=== PATIENT | female | born 1935 | race Caucasian/White ===

== ENCOUNTER 2017-06-13 14:17 | Inpatient (IN) | payer MEDICARE, BC ==
--- NOTE | 2017-06-13 14:46 | ERNOTE ---
Date of Service: 06/13/17 Time Seen by Provider: 06/13/17 14:29 Stated Complaint: SHORTNESS OF BREATH Presenting Symptoms:: cough, sore throat, runny nose, fever Source: patient Exam Limitations: no limitations Immunizations: IMMUNIZATION HX Immunizations Up to Date Yes History of Influenza Vaccine Yes Hx Pneumococcal Vaccination Yes Allergies/Adverse Reactions: Allergies No Known Allergies Allergy (Verified 05/13/16 10:40) Home Medications: HOME MEDICATIONS Amiodarone HCl [Cordarone] 100 mg PO DAILY 04/05/16 [Last Taken 04/05/16] Aspirin 325 mg PO DAILY 04/05/16 [Last Taken 04/05/16] Pravastatin Sodium 40 mg PO DAILY 04/05/16 [Last Taken 04/04/16] Acetaminophen [Tylenol] 1,000 mg PO TID PRN 05/12/16 [Last Taken Unknown] Blood-Glucose Meter [Blood Glucose Monitoring] 1 each MC DAILY 05/12/16 [Last Taken Unknown] Carvedilol [Coreg] 12.5 mg PO BID 05/12/16 [Last Taken Unknown] Cholecalciferol [Vitamin D] 1,000 unit PO DAILY 05/12/16 [Last Taken Unknown] HYDROcodone/ACETAMINOPHEN [Lortab 5-325 mg Tablet] 1 each PO Q12H PRN 05/12/16 [ Last Taken Unknown] Levothyroxine Sodium [Synthroid] 125 mcg PO DAILY 05/12/16 [Last Taken Unknown] Sennosides [Senokot] 17.2 mg PO DAILY PRN 05/12/16 [Last Taken Unknown] metFORMIN HCL [Glucophage] 250 mg PO BIDWM 05/12/16 [Last Taken Unknown] oxyCODONE HCL/ACETAMINOPHEN [Percocet 5 MG/325 MG] 1 tab PO TID PRN 05/12/16 [ Last Taken Unknown] - History of Present Ilness Narrative: Pt. comes in with c/o SOB, cough, malaise, and fatigue for two days. Pt. denies any fever, CP, NVD, but does state that she has had chills and has not wanted to eat anything for a couple of days. Timing: getting worse Severity: moderate Frequency/Possible Cause: Reports: occasional episodes, unknown cause Modifying Factors - Improves: Reports: nothing Modifying Factors - Worsens: Reports: nothing Associated Symptoms: Reports: cough, shortness of breath, nasal congestion, nasal drainage, earache, sore throat, muscle aches, fever/chills Review of Systems - Review of Systems Constitutional: Present: chills, fatigue, malaise. Absent: fever, weakness EYE: Present: no symptoms reported ENT: Present: ear pain, nose congestion, nasal drainage, sore throat Respiratory: Present: shortness of breath, cough. Absent: wheezing Cardiology: Present: no symptoms reported. Absent: chest pain, palpitations, edema Gastrointestinal/Abdominal: Present: no symptoms reported. Absent: nausea, vomiting, diarrhea, abdominal pain Genitourinary: Present: no symptoms reported. Absent: frequency, decreased urinary output Musculoskeletal: Present: no symptoms reported. Absent: back pain, joint pain Skin: Present: no symptoms reported Neurological: Present: no symptoms reported. Absent: headache, dizziness/light- headedness, numbness, tingling All Other Systems: All systems neg except as marked - Patient's Past Medical History Patient History - Medical: Anxiety, Arthritis, Diabetes Type 2, Depression, Hypothyroidism Patient History - Cardiac/Respiratory: Hypertension, Hyperlipidemia, Myocardial Infarction Patient History - Cancer: No Hx of Cancer Patient History - Surgical Procedures: Cholecystectomy, Pacemaker Patient History - Other: None LMP (females 10-50): Menopausal - Family History Father Family History - Medical: Family History - Cardiac/Respiratory: COPD Mother Family History - Medical: Family History - Cardiac/Respiratory: History Unknown, COPD - Social History Living Situations: home Abuse History: No History of abuse Psych History: Hx of Anxiety, Hx of Depression Smoking Status: Never smoker Have you smoked in the past 12 months: No Do you dip or chew tobacco: No Alcohol Use: none Drug Use: none - Immunizations Immunizations Up to Date: Yes Hx Pneumococcal Vaccination: Yes History of Influenza Vaccine: Yes Physical Exam - Physical Exam General Appearance: Present: wd/wn, alert, no apparent distress Head Exam: Present: normal inspection, no evidence of injury Eye Exam: Normal inspection: bilateral Ears, Nose, Throat: Present: nasal congestion, pharyngeal erythema. Absent: pharyngeal swelling, tonsillar exudate, tonsillar swelling Neck: Present: nontender, supple, full range of motion, lymphadenopathy (L) - submandibular Respiratory: Present: no respiratory distress, no accessory muscle use, chest nontender, crackles - bibasilar Cardiovascular/Chest: Present: regular rate, rhythm, no murmur, normal peripheral pulses Gastrointestinal/Abdominal: Present: normal bowel sounds, nontender, nondistended, soft Back Exam: Present: normal inspection Extremity Exam: Present: normal inspection, non-tender, normal range of motion, no edema Neurological Exam: Present: alert, oriented, normal mood/affect, no motor/ sensory deficits, acid purifier II-XII nml as tested, normal cerebellar test Skin Exam: Present: normal color, warm/dry. Absent: pallor, skin rash ED Progress - Date and Time Seen: Date and Time: 06/13/17 15:45 Discussed with Olinda and as pt. is not hypoxic and is not terribly ill feel that she is likely safe to go home 06/13/17 15:[address] Martines and as pt. is elderly and has a hx of stents then she would prefer pt. to be admitted to obs overnight. 06/13/17 15:55 Discussed with pt. and she is in agreement with the POC to admit her to the hospital. - Results and Orders Patient's Lab Results:: I have reviewed the patient's lab results. Results and Orders: Abnormal Lab Results 06/13/17 06/13/17 Range/Units 14:28 14:46 RBC 4.10 L (4.2-5.4) M/mm3 MPV 10.3 H (6.0-9.5) fl Neutrophils % 76.0 H (42-75.0) % Lymphocytes % 13.4 L (20-51) % Lymphocytes # 0.7 L (1.5-3.5) k/mm3 Random Glucose 151 H (70-110) mg/dL ALT 18 L (19-67) U/L B-Natriuretic Peptide 2225 H (5-550) pg/mL - Vital Signs Patient's Vital Signs:: I have reviewed the patient's vital signs. Vital Signs: Vital Signs 06/13/17 14:19 Temperature 36.7 C Pulse Rate 88 Respiratory 18 Rate Blood Pressure 156/89 O2 Sat by Pulse 95 Oximetry - EKG EKG: other - SR with nonspecific changes in lateral leads, no acute ST abnormality. EKG read: Interp. by me - Progress/Reassessment Chief Complaint: Upper Respiratory Symptoms Progress:: Unchanged Departure Clinical Impression: CAD (coronary artery disease), [place] coronary artery Qualifiers: [place] vs. transplanted heart: [place] heart Associated angina: without angina Qualified Code(s): I25.10 - Atherosclerotic heart disease of [place] coronary artery without angina pectoris CHF (congestive heart failure) Qualifiers: Congestive heart failure type: unspecified congestive heart failure type Congestive heart failure chronicity: acute on chronic Qualified Code(s): I50.9 - Heart failure, unspecified - Departure Disposition: [facility] Condition: Fair
[2017-06-13 14:55] LABS: Hematocrit 37.8 % (37.0-47.0); Hemoglobin 12.6 gm/dL (12.5-16.0); Mean Cell Volume 92.2 fl (78-100); Mean Corpuscular Hemoglobin 30.7 pg (27-31); Mean Corpuscular Hgb Conc 33.3 g/dl (32-36); Mean Platelet Volume 10.3 fl (6.0-9.5); Neutrophil # 4.2 K/mm3 (1.3-6.0); Platelet Count 180 K/mm3 (150-450); Red Cell Distribution Width 13.1 % (11.5-14.0); White Blood Count 5.5 K/mm3 (4.0-10.5)
[2017-06-13 15:19] LABS: ALT 18 U/L (19-67); AST 19 U/L (0-48); Albumin * 3.4 gm/dl (3.4-5.0); Alkaline Phosphatase * 74 U/L (50-170); Anion Gap 10.7 mmol/L (6.8-13.8); BNP * 2225 pg/mL (5-550); BUN/Creatinine Ratio 12.9 (9.0-21.6); Bilirubin, Total 0.8 mg/dL (0.0-1.1); Blood Urea Nitrogen 11 mg/dL (3-23); Ca. Corrected For Albumin 9.2 mg/dL (8.4-10.2); Carbon Dioxide 31.5 mmol/L (24-32.6); Chloride 100 mmol/L (97-106); Glucose * 151 mg/dL (70-110); Potassium 4.2 mmol/L (3.4-4.6); Sodium 138 mmol/L (132-142); Total Protein 7.6 gm/dL (6.2-8.2); Troponin I Less than 0.017 ng/ml (0.00-0.10)
[2017-06-13] MEDS ORDERED: FUROSEMIDE 10 MG/ML VIAL IV ONE ×2 (15:31→15:39)
[2017-06-13] MEDS ORDERED: FUROSEMIDE 10 MG/ML VIAL ONE (15:47)
[2017-06-13] MEDS ORDERED: cefTRIAXone SODIUM 1,000 MG in DEXTROSE 5 % IN WATER 50 ML IV STA ×2 (17:41)
[2017-06-13] MEDS ORDERED: AZITHROMYCIN 500 MG in DEXTROSE 5 % IN WATER 250 ML IV STA ×2 (17:42)
[2017-06-13] MEDS ORDERED: oxyCODONE HCL/ACETAMINOPHEN 1 TAB TABLET PO PRN (17:43)
--- NOTE | 2017-06-13 17:59 | HP ---
Chief Complaint - Chief Complaint Date of Service: 06/13/17 Time of Service: 17:46 Chief Complaint: chills, weakness, rob coloured sputum x 3 days. History of Present Illness: Patient is a 81-year-old WF with a history of HTN, HLD, T2DM, CAD [ME with stent placement in 1992,vessel unknown], S/P pacemaker placement in 2014, hypothyroidism who came to the ER because of blood in sputum, chills for the last 3 days. She states she was seated next to a sick child during [employer] dinner. She also complains of a sore throat. 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 Her CXR [06/13/17]: pulmonary venous congestion/interstitial edema, consider CHF versus volume overload; bibasilar opacities suggestive of either atelectasis / alveolar edema/multifocal pneumonia. Mild to moderate cardiomegaly present. Patient was given 60 mg of IV furosemide in the ER. Examined her on the floor and given her history she was also started on CTX 1 g IV daily and azithromycin 500 mg IV daily. Influenza titers were negative and CRP/ pro-calcitonin were pending at the time of dictation. 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 CAD[ME with stent placement in 1992], PAF on amiodarone but not on anticoagulation - ???[ Sees Dr. Brenner]. LT hip pain on on oxycodone/acetaminophen. Anxiety and depression. GERD, LT shoulder pain due to rotator cuff problems, gets steroid shots; osteopenia CKD stage III. Patient History - Cancer: No Hx of Cancer Additional Info: PAST SURGICAL HISTORY: Vein stripping-. Bilateral carpal tunnel surgery in ; MUSHTAQ/BSO 1982. cholecystectomy. EGD/colonoscopy: Gastritis/WNL 12/2010. DDD placement due to third-degree AV block:2014 Patient History - Other: None LMP (females 10-50): Menopausal - Family History Father Family History - Medical: - 65COPD Mother Family History - Medical: - 82MI, CAD - Social History Living Situations: alone Abuse History: No History of abuse Psych History: Hx of Anxiety, Hx of Depression Smoking Status: Never smoker Have you smoked in the past 12 months: No Do you dip or chew tobacco: No Patient requests Smoking Cessation Consult: No Initiate information on Smoking Cessation: No Alcohol Use: none Drug Use: none - Immunizations Immunizations Up to Date: Yes Hx Pneumococcal Vaccination: Yes History of Influenza Vaccine: Yes Review Of Systems (GEN) - Review of Systems Generalized/Overall Review: Present: Weakness, Chills, Fever Respiratory: Present: Cough, Shortness of Breath Cardiac: Absent: Chest Pain, Edema Abdominal: Absent: Nausea, Vomiting Musculoskeletal: Present: Other - myalgias, arthralgias Neurological: Present: Headache. Absent: Anxiety, Depressed Immunizations: IMMUNIZATION HX Immunizations Up to Date Yes History of Influenza Vaccine Yes Hx Pneumococcal Vaccination Yes Allergies/Adverse Reactions: Allergies Allergy/AdvReac Type Severity Reaction Status Date / Time No Known Allergies Allergy Verified 06/13/17 16:45 Home Medications: HOME MEDICATIONS Amiodarone HCl [Cordarone] 100 mg PO DAILY 04/05/16 [Last Taken 04/05/16] Aspirin 81 mg PO DAILY 04/05/16 [Last Taken 04/05/16] Acetaminophen [Tylenol] 1,000 mg PO TID PRN 05/12/16 [Last Taken Unknown] Blood-Glucose Meter [Blood Glucose Monitoring] 1 each MC DAILY 05/12/16 [Last Taken Unknown] Carvedilol [Coreg] 12.5 mg PO BID 05/12/16 [Last Taken Unknown] Cholecalciferol [Vitamin D] 2,000 unit PO DAILY 05/12/16 [Last Taken Unknown] Levothyroxine Sodium [Synthroid] 125 mcg PO DAILY 05/12/16 [Last Taken Unknown] Sennosides [Senokot] 2 tab PO DAILY PRN 05/12/16 [Last Taken Unknown] metFORMIN HCL [Glucophage] 250 mg PO BIDWM 05/12/16 [Last Taken Unknown] oxyCODONE HCL/ACETAMINOPHEN [Percocet 5 MG/325 MG] 1 tab PO BID PRN 05/12/16 [ Last Taken Unknown] Albuterol Sulfate [Proair Hfa] 1 puff IH Q4H PRN 06/13/17 [Last Taken Unknown] Atorvastatin Calcium [Lipitor] 10 mg PO HS 06/13/17 [Last Taken Unknown] Furosemide [Lasix] 20 mg PO DAILY PRN 06/13/17 [Last Taken Unknown] Azithromycin [Zithromax] 500 mg PO DAILY 5 Days #5 tab 06/17/17 [Last Taken Unknown] Cefdinir 300 mg PO Q12H #14 capsule 06/17/17 [Last Taken Unknown] guaiFENesin/DEXTROMETHORPHAN [Robitussin-Dm] 10 ml PO Q4H PRN #1 btl 06/17/17 [ Last Taken Unknown] Exam - Exam Vital Signs: Vital Signs - Last Taken Temp 36.8 C 06/13/17 16:17 Pulse 82 06/13/17 16:17 Resp 16 06/13/17 16:17 BP 143/80 06/13/17 16:17 Pulse Ox 93 06/13/17 16:17 Constitutional: Present: Elderly - Looks stated years, alert and oriented 3, in no acute distress ENT Exam: Present: hearing grossly normal, pharynx normal, moist mucous membranes Eye Exam: bilateral eye: PERRL, EOMI Neck: Present: normal inspection, trachea midline Respiratory: Present: no accessory muscle use, decreased breath sounds, wheezing - Bilaterally Cardiovascular/Chest: Present: regular rate, rhythm, systolic murmur. Absent: tachycardia Peripheral Pulses: carotid (R): 2+, carotid (L): 2+ Abdomen: Present: Normal bowel sounds, soft, nontender, nondistended /Rectal: Present: Exam deferred Extremity: Present: normal range of motion, non-tender, no pedal edema Appearance: Present: appropriate appearance, appropriate insight, neat Eye contact: Present: good eye contact, normal speech Diagnostic Studies: Laboratory Tests 06/13/17 14:28 WBC 5.5 Hgb 12.6 Hct 37.8 Plt Count 180 06/13/17 14:46 Plasma Sodium 139 Potassium 4.2 Chloride 100 Carbon Dioxide 31.5 BUN 11 Creatinine 0.85 Est GFR (Non-Af Amer) 68 Random Glucose 151 H Calcium Adj for Albumin 9.2 Total Bilirubin 0.8 AST 19 ALT 18 L Alkaline Phosphatase 74 Total Protein 7.6 Albumin 3.4 06/13/17 06/13/17 14:26 14:46 Troponin I Less than 0.017 B-Natriuretic Peptide 2225 H Influenza Type A Ag Negative Influenza Type B Ag Negative CXR PA/lateral: 07/13/2017: 1. Mild to moderate cardiomegaly. 2. Pulmonary vascular congestion/interstitial edema suggested. 3. Consider congestive heart failure versus volume overload. 4. Bibasilar opacities suggestive of either atelectasis versus potential trace amount of alveolar edema versus multifocal pneumonia. Correlate clinically and consider radiographic follow-up. Assessment/Plan - Narrative Narrative: 1. Chills with rob colored sputum: Obtain sputum for culture and sensitivity. Empirically treat patient with azithromycin 500 mg IV daily and ceftriaxone 1 g IV daily. Repeat chest x-ray in a.m. 2. Congestive heart failure: CXR more C/W with Dx of CHF. Patient was given furosemide 60 mg IV X1 and spironolactone 25 mg PO X1. Monitor I's and O's and response to diuretics. Obtain echocardiogram if not done in the last 1-[address] Bush's office in a.m. 3. Paroxysmal A. fib on amiodarone: Discuss regarding anticoagulation with patient as her KWAME score is greater than 2. 4. CAD: History of STEMI with stent placement to LAD in 1992. 5. Other chronic problems: LT hip pain, osteopenia, rotator cuff problems, GERD, T2DM reviewed and stable. - Assessment/Plan (1) Pneumonia Problem: Acute Qualifiers: Aspiration pneumonia type: unspecified Laterality: bilateral (2) CHF (congestive heart failure) Problem: Acute Qualifiers: Congestive heart failure type: unspecified congestive heart failure type Congestive heart failure chronicity: acute (3) CAD (coronary artery disease), [place] coronary artery Problem: Chronic Qualifiers: [place] vs. transplanted heart: [place] heart Associated angina: without angina Qualified Code(s): I25.10 - Atherosclerotic heart disease of [place] coronary artery without angina pectoris
[2017-06-13] MEDS: SENNOSIDES 8.6 MG TABLET PO SCH (21:05)
[2017-06-13] MEDS: ROSUVASTATIN CALCIUM 10 MG TABLET PO SCH (21:05)
[2017-06-13] MEDS: CARVEDILOL 12.5 MG TABLET PO SCH (21:06)
[2017-06-13] MEDS: guaiFENesin/DEXTROMETHORPHAN 118 ML BTL PO PRN (21:06)
[2017-06-14] MEDS: ACETAMINOPHEN 500 MG TABLET PO PRN ×2 (00:52→22:48)
[2017-06-14] MEDS: guaiFENesin/DEXTROMETHORPHAN 118 ML BTL PO PRN ×4 (03:24→21:12)
[2017-06-14 06:16] LABS: Albumin * 2.9 gm/dl (3.4-5.0); Anion Gap 6.8 mmol/L (6.8-13.8); BUN/Creatinine Ratio 13.1 (9.0-21.6); Bilirubin, Total 0.8 mg/dL (0.0-1.1); Ca. Corrected For Albumin 9.2 mg/dL (8.4-10.2); Calcium * 8.6 mg/dL (7.9-10.9); Carbon Dioxide 32.2 mmol/L (24-32.6); Total Protein 6.6 gm/dL (6.2-8.2)
[2017-06-14] MEDS: LEVOTHYROXINE SODIUM 125 MCG TABLET PO SCH (06:46)
[2017-06-14] MEDS: metFORMIN HCL 500 MG TABLET PO SCH ×2 (08:17→16:57)
[2017-06-14] MEDS: CARVEDILOL 12.5 MG TABLET PO SCH ×2 (08:18→21:10)
[2017-06-14] MEDS: ALBUTEROL SULFATE/IPRATROPIUM 3 ML NEBU IH SCH ×3 (10:09→18:14)
[2017-06-14] MEDS: cefTRIAXone SODIUM 1,000 MG in DEXTROSE 5 % IN WATER 50 ML IV SCH ×2 (10:21)
[2017-06-14 10:51] LABS: Hemoglobin 11.2 gm/dL (12.5-16.0); Mean Cell Volume 90.4 fl (78-100); Mean Corpuscular Hemoglobin 30.7 pg (27-31); Mean Corpuscular Hgb Conc 33.9 g/dl (32-36); Mean Platelet Volume 11.2 fl (6.0-9.5); Neutrophil # 3.1 K/mm3 (1.3-6.0); Neutrophil % 76.2 % (42-75.0); Platelet Count 156 K/mm3 (150-450); Red Blood Count 3.65 M/mm3 (4.2-5.4); Red Cell Distribution Width 13.2 % (11.5-14.0); White Blood Count 4.1 K/mm3 (4.0-10.5)
[2017-06-14] MEDS: AZITHROMYCIN 500 MG in DEXTROSE 5 % IN WATER 250 ML IV SCH ×2 (10:57)
--- NOTE | 2017-06-14 11:31 | PN ---
Subjective - Date and Time Seen Date: 06/14/17 Subjective Narrative: feels worse this morning, still bringing up rob coloured sputum. C/O coughing , wheezing and having chills. Objective - Review of Systems Generalized/Overall Review: Reports: Weakness, Chills, Fever Respiratory: Reports: Cough, Shortness of Breath, Wheezing Cardiac: Denies: Chest Pain, Edema, Palpitations Abdominal: Denies: Nausea, Vomiting - Vitals Vitals: Last Vital Signs Temp 37 C 06/14/17 10:29 Pulse 88 06/14/17 10:29 Resp 18 06/14/17 10:29 BP 134/70 06/14/17 10:29 Pulse Ox 96 06/14/17 10:29 - Abnormal Lab Findings Abnormal Lab Findings: Laboratory Tests 06/14/17 05:55 WBC 4.1 D Hgb 11.2 L Hct 33.0 L Plt Count 156 06/14/17 05:55 Plasma Sodium 133 Potassium 3.0 L D Chloride 95 L Carbon Dioxide 32.2 BUN 11 Creatinine 0.84 Est GFR (Non-Af Amer) 69 Random Glucose 202 H D Calcium Adj for Albumin 9.2 Total Bilirubin 0.8 AST 15 ALT 16 L Alkaline Phosphatase 67 Total Protein 6.6 Albumin 2.9 L - EKG/Xray Findings Interpretation: Discd w/ radiologist - Possible infiltrate in RUL near the minor fissure. Persistent increased vascular markings and peripheral linear lung markings which could represent interstitial lung edema versus new developing infection. Stable cardiomegaly. - Exam Constitutional: Present: Elderly - looks ill, alert and oriented x3, with harsh cough. ENT Exam: Present: pharynx normal, moist mucous membranes Neck: Present: normal inspection, trachea midline Respiratory: Present: no accessory muscle use - Diffuse bilateral inspiratory/ expiratory wheezing in both lung [place] Cardiovascular/Chest: Present: regular rate, rhythm. Absent: tachycardia Abdomen: Present: Normal bowel sounds, soft, nontender, nondistended /Rectal: Present: Exam deferred Extremity: Present: normal range of motion, normal inspection, no pedal edema Skin Exam: Present: warm/dry, pallor Eye contact: Present: cooperative, good eye contact, normal speech Assessment/Plan Plan Narrative: 1. Pneumonia: Density seen in right upper lobe pneumonia near the minor fissure on CXR: Continue with ceftriaxone 1 g IV daily and azithromycin 500 mg IV daily. Sputum for C&S pending. [place] every 1-2 hours while awake. Urine for pneumococcal antigen and Legionella antigen. Influenza titers were negative. CXR reviewed with the radiologist: Increase in the vascular markings/peripheral linear markings could be consistent with peripheral interstitial edema/new developing infection or pneumonitis. Admit patient; will require at least 1-2 midnights 2. Bronchospasm: Albuterol/Atrovent to be given every 6 hours by inhalation. Pulmicort 0.5 mg IH twice a day. O2 at 2 L if sats drop below 90%. 3. Electrolyte imbalance: Potassium 3.0, sodium 133, chloride 95. Start patient on normal saline with 20 of KCl at 75 mL an hour check electrolytes in a.m. 4. DVT prophylaxis: Lovenox 40 mg subcutaneous daily. CODE STATUS full code. - Problems/Diagnosis (1) Pneumonia Problem: Acute Qualifiers: Aspiration pneumonia type: unspecified Laterality: right Lung location: upper lobe of lung (2) CAD (coronary artery disease), [place] coronary artery Problem: Chronic Qualifiers: [place] vs. transplanted heart: [place] heart Associated angina: without angina Qualified Code(s): I25.10 - Atherosclerotic heart disease of [place] coronary artery without angina pectoris
[2017-06-14] MEDS ORDERED: BUDESONIDE 0.5 MG/2 ML VIAL.NEB IH ONE (11:34)
[2017-06-14] MEDS: ALBUTEROL SULFATE 2.5 MG/0.5 ML VIAL.NEB IH PRN (11:38)
[2017-06-14] MEDS: BUDESONIDE 0.5 MG/2 ML VIAL.NEB IH SCH ×2 (11:40→18:15)
[2017-06-14] MEDS: ENOXAPARIN SODIUM 40 MG/0.4 ML SYRG SC SCH (12:36)
[2017-06-14] MEDS: CHOLECALCIFEROL 1,000 UNIT CAPSULE PO SCH (12:36)
[2017-06-14] MEDS: POTASSIUM CHLORIDE 20 MEQ TABLET.SA PO SCH ×3 (12:37→16:56)
[2017-06-14] MEDS: POTASSIUM CHLORIDE 20 MEQ in NORMAL SALINE 1,000 ML IV SCH (12:37)
[2017-06-14] MEDS: ROSUVASTATIN CALCIUM 10 MG TABLET PO SCH (21:11)
[2017-06-14] MEDS: SENNOSIDES 8.6 MG TABLET PO SCH (21:11)
[2017-06-15] MEDS: ALBUTEROL SULFATE/IPRATROPIUM 3 ML NEBU IH SCH ×5 (01:20→18:00)
[2017-06-15] MEDS: guaiFENesin/DEXTROMETHORPHAN 118 ML BTL PO PRN ×4 (01:36→20:05)
[2017-06-15] MEDS: POTASSIUM CHLORIDE 20 MEQ in NORMAL SALINE 1,000 ML IV SCH (01:57)
[2017-06-15 05:48] LABS: Hematocrit 31.5 % (37.0-47.0); Hemoglobin 10.5 gm/dL (12.5-16.0); Mean Corpuscular Hemoglobin 30.3 pg (27-31); Mean Corpuscular Hgb Conc 33.3 g/dl (32-36); Mean Platelet Volume 10.3 fl (6.0-9.5); Neutrophil # 2.1 K/mm3 (1.3-6.0); Neutrophil % 60.9 % (42-75.0); Platelet Count 134 K/mm3 (150-450); Red Blood Count 3.46 M/mm3 (4.2-5.4); Red Cell Distribution Width 13.1 % (11.5-14.0); White Blood Count 3.4 K/mm3 (4.0-10.5)
[2017-06-15 06:10] LABS: Albumin * 2.6 gm/dl (3.4-5.0); Anion Gap 6.3 mmol/L (6.8-13.8); BUN/Creatinine Ratio 9.2 (9.0-21.6); Bilirubin, Total 0.5 mg/dL (0.0-1.1); Ca. Corrected For Albumin 9.5 mg/dL (8.4-10.2); Calcium * 8.7 mg/dL (7.9-10.9); Carbon Dioxide 30.1 mmol/L (24-32.6); Potassium 4.4 mmol/L (3.4-4.6); Total Protein 6.1 gm/dL (6.2-8.2)
[2017-06-15] MEDS: BUDESONIDE 0.5 MG/2 ML VIAL.NEB IH SCH ×3 (07:15→18:00)
[2017-06-15] MEDS: LEVOTHYROXINE SODIUM 125 MCG TABLET PO SCH (07:28)
[2017-06-15] MEDS: INSULIN LISPRO 100 UNITS/ML VIAL SC SCH ×3 (07:28→17:20)
--- NOTE | 2017-06-15 09:08 | PN ---
Subjective - Date and Time Seen Date: 06/15/17 Time: 09:06 Subjective Narrative: feels better, cough and wheezing has improved. Continues to obtain respiratory treatments with DuoNeb and Pulmicort. Continues to have significant weakness. No pleuritic chest pain. Patient is able to ambulate without her sats dropping and O2 was discontinued. Objective - Review of Systems Generalized/Overall Review: Reports: Weakness. Denies: Chills, Fever Respiratory: Reports: Cough, Shortness of Breath, Wheezing Cardiac: Denies: Chest Pain, Edema, Palpitations - Vitals Vitals: Vital Signs Temp 36.4 C L 06/15/17 07:09 Pulse 75 06/15/17 07:25 Resp 18 06/15/17 07:25 BP 116/59 06/15/17 07:09 Pulse Ox 96 06/15/17 07:09 - Abnormal Lab Findings Abnormal Lab Findings: Laboratory Tests 06/15/17 05:35 WBC 3.4 L Hgb 10.5 L Hct 31.5 L Plt Count 134 L 06/15/17 05:35 Plasma Sodium 136 Potassium 4.4 D Chloride 103 Carbon Dioxide 30.1 BUN 7 Creatinine 0.76 Est GFR (Non-Af Amer) 78 Random Glucose 159 H Calcium Adj for Albumin 9.5 Total Bilirubin 0.5 AST 14 ALT 14 L Alkaline Phosphatase 63 - EKG/Xray Findings Interpretation: Discd w/ radiologist - from 06/14/17 - Exam Constitutional: Present: Elderly - alert and oriented x3, cooperative, looks worn out and tired. ENT Exam: Present: hearing grossly normal, moist mucous membranes Neck: Present: normal inspection, trachea midline Respiratory: Present: no accessory muscle use - bilateral rhonchi and wheezing , less pronounced than 06/14/17. Cardiovascular/Chest: Present: regular rate, rhythm, systolic murmur. Absent: tachycardia Abdomen: Present: Normal bowel sounds, soft, nontender, nondistended. Absent: guarding, rigidity Extremity: Present: normal range of motion, normal inspection, no pedal edema Skin Exam: Present: warm/dry, pallor Appearance: Present: appropriate appearance, appropriate insight, no memory impairment Assessment/Plan Plan Narrative: 1. PNEUMONIA: Patient on ceftriaxone 1 g IV daily and azithromycin 500 mg IV daily day #3. CXR shows possible right upper lobe infiltrate. Sputum culture pending/urine pneumococcal antigen/urine Legionella antigen pending. 2. BRONCHOSPASM: Continue DuoNeb IH every 6 hours and Pulmicort 0.5 mg IH every 8 hours; can use albuterol 2.5 g IH every 3 hours as needed for bronchospasm. Trying to avoid steroids due to T2DM. 3. HYPERTENSION: On carvedilol 12.5 mg twice a day. 4. HYPERLIPIDEMIA: Atorvastatin 10 mg by mouth daily. 5. OTHER CHRONIC MEDICAL PROBLEMS: T2 DM [metformin 250 mg twice a day], hypothyroidism[levothyroxine 125 mg daily ] osteoarthritis with left hip pain[oxycodone/acetaminophen Percocet 5/325 mg twice a day as needed], DDD pacemaker for third-degree AV block, PAF[not on anticoagulation-???, on amiodarone] to be started after discharge reviewed and stable. 5. CODE STATUS: Full code DVT prophylaxis: Lovenox 40 mg subcutaneous daily. - Problems/Diagnosis (1) Pneumonia Problem: Acute Qualifiers: Aspiration pneumonia type: unspecified Laterality: bilateral (2) Bronchospasm, acute Problem: Acute (3) CAD (coronary artery disease), [place] coronary artery Problem: Chronic Qualifiers: [place] vs. transplanted heart: [place] heart Associated angina: without angina Qualified Code(s): I25.10 - Atherosclerotic heart disease of [place] coronary artery without angina pectoris (4) Hypertension Problem: Chronic (5) Diabetes mellitus type 2, uncomplicated Problem: Chronic Qualifiers: Diabetes mellitus prison insulin use: without prison use Qualified Code(s): E11.9 - Type 2 diabetes mellitus without complications
[2017-06-15] MEDS: cefTRIAXone SODIUM 1,000 MG in DEXTROSE 5 % IN WATER 50 ML IV SCH ×2 (09:51)
[2017-06-15] MEDS: metFORMIN HCL 500 MG TABLET PO SCH ×2 (09:52→17:21)
[2017-06-15] MEDS: CARVEDILOL 12.5 MG TABLET PO SCH ×2 (09:52→20:06)
[2017-06-15] MEDS: AZITHROMYCIN 500 MG in DEXTROSE 5 % IN WATER 250 ML IV SCH ×2 (10:40)
[2017-06-15] MEDS: CHOLECALCIFEROL 1,000 UNIT CAPSULE PO SCH (11:41)
[2017-06-15] MEDS: ENOXAPARIN SODIUM 40 MG/0.4 ML SYRG SC SCH (11:44)
[2017-06-15] MEDS: ALBUTEROL SULFATE 2.5 MG/0.5 ML VIAL.NEB IH PRN (13:30)
[2017-06-15] MEDS: ROSUVASTATIN CALCIUM 10 MG TABLET PO SCH (20:07)
[2017-06-15] MEDS: SENNOSIDES 8.6 MG TABLET PO SCH (20:07)
[2017-06-15] MEDS: ACETAMINOPHEN 500 MG TABLET PO PRN (22:28)
[2017-06-16] MEDS: guaiFENesin/DEXTROMETHORPHAN 118 ML BTL PO PRN ×6 (00:11→22:45)
[2017-06-16] MEDS: ALBUTEROL SULFATE/IPRATROPIUM 3 ML NEBU IH SCH ×5 (00:55→19:27)
[2017-06-16] MEDS: BUDESONIDE 0.5 MG/2 ML VIAL.NEB IH SCH ×3 (06:08→19:28)
[2017-06-16] MEDS: INSULIN LISPRO 100 UNITS/ML VIAL SC SCH ×3 (07:16→16:54)
[2017-06-16] MEDS: LEVOTHYROXINE SODIUM 125 MCG TABLET PO SCH (07:17)
[2017-06-16] MEDS: CARVEDILOL 12.5 MG TABLET PO SCH ×2 (09:00→20:21)
[2017-06-16] MEDS: metFORMIN HCL 500 MG TABLET PO SCH ×2 (09:01→16:54)
[2017-06-16] MEDS: cefTRIAXone SODIUM 1,000 MG in DEXTROSE 5 % IN WATER 50 ML IV SCH ×2 (09:54)
[2017-06-16] MEDS: AZITHROMYCIN 500 MG in DEXTROSE 5 % IN WATER 250 ML IV SCH ×2 (10:12)
[2017-06-16] MEDS: ENOXAPARIN SODIUM 40 MG/0.4 ML SYRG SC SCH (11:48)
[2017-06-16] MEDS: CHOLECALCIFEROL 1,000 UNIT CAPSULE PO SCH (12:23)
--- NOTE | 2017-06-16 13:42 | PN ---
Subjective - Date and Time Seen Date: 06/16/17 Time: 13:42 Subjective Narrative: Patient seen at bedside in the morning. Cough and wheezing has improved. No pleuritic chest pain. Stopped having fevers and chills. Patient has been wheezing less. Objective - Review of Systems Generalized/Overall Review: Reports: Weakness - Mild. Denies: Chills, Fever Respiratory: Reports: Cough, Wheezing Cardiac: Denies: Chest Pain, Edema, Palpitations - Vitals Vitals: Vital Signs Temp 36.4 C L 06/16/17 10:56 Pulse 70 06/16/17 13:35 Resp 23 H 06/16/17 13:35 BP 118/62 06/16/17 10:56 Pulse Ox 97 06/16/17 13:35 - EKG/Xray Findings Interpretation: Reviewed by me - Multifocal worsening opacities involving RUL and bilateral lower lobes. D/D worsening multifocal pneumonia / pulmonary edema. - Exam Constitutional: Present: Elderly - alert and oriented x 3, cooperative, looks tired, in no distress. ENT Exam: Present: hearing grossly normal, moist mucous membranes - tongue coated. Neck: Present: normal inspection, trachea midline Respiratory: Present: no accessory muscle use - bilateral wheezing and rhonchi , improved from 06/15/17. Cardiovascular/Chest: Present: regular rate, rhythm, no murmur. Absent: tachycardia Abdomen: Present: Normal bowel sounds, soft, nontender, nondistended Extremity: Present: normal range of motion, normal inspection, no pedal edema Skin Exam: Present: warm/dry, pallor Assessment/Plan Plan Narrative: 1. BILATERAL PNEUMONIA: Patient on ceftriaxone 1 g IV daily and azithromycin 500 mg IV daily day #4. CXR from 06/16/17: Multifocal opacities - RUL and bilateral lower lobes. Sputum culture negative. Urine pneumococcal antigen/urine Legionella antigen pending. Possible D/C on 06/17/17. if clinically improved/ continue antibiotics for 2 days. 2. BRONCHOSPASM: Continue DuoNeb IH every 6 hours and Pulmicort 0.5 mg IH every 8 hours; can use albuterol 2.5 g IH every 3 hours as needed for bronchospasm. Trying to avoid steroids due to T2DM. 3. HYPERTENSION: On carvedilol 12.5 mg twice a day. 4. HYPERLIPIDEMIA: Atorvastatin 20 mg by mouth daily. 5. OTHER CHRONIC MEDICAL PROBLEMS: T2 DM [metformin 250 mg twice a day], hypothyroidism[levothyroxine 125 mg daily ] osteoarthritis with left hip pain[oxycodone/acetaminophen Percocet 5/325 mg twice a day as needed], DDD pacemaker for third-degree AV block, PAF[not on anticoagulation-???, on amiodarone] to be started after discharge reviewed and stable. 5. CODE STATUS: Full code DVT prophylaxis: Lovenox 40 mg subcutaneous daily. - Problems/Diagnosis (1) Pneumonia Problem: Acute Qualifiers: Aspiration pneumonia type: unspecified Laterality: bilateral (2) Bronchospasm, acute Problem: Acute (3) CAD (coronary artery disease), [place] coronary artery Problem: Chronic Qualifiers: [place] vs. transplanted heart: [place] heart Associated angina: without angina Qualified Code(s): I25.10 - Atherosclerotic heart disease of [place] coronary artery without angina pectoris (4) Hypertension Problem: Chronic (5) Diabetes mellitus type 2, uncomplicated Problem: Chronic Qualifiers: Diabetes mellitus middle or intermediate school principal insulin use: without group home use Qualified Code(s): E11.9 - Type 2 diabetes mellitus without complications
[2017-06-16] MEDS: ALBUTEROL SULFATE 2.5 MG/0.5 ML VIAL.NEB IH PRN (17:08)
[2017-06-16] MEDS: ROSUVASTATIN CALCIUM 10 MG TABLET PO SCH (20:21)
[2017-06-16] MEDS: SENNOSIDES 8.6 MG TABLET PO SCH (20:22)
[2017-06-17] MEDS: ALBUTEROL SULFATE/IPRATROPIUM 3 ML NEBU IH SCH ×2 (00:35→06:08)
[2017-06-17] MEDS: BUDESONIDE 0.5 MG/2 ML VIAL.NEB IH SCH (06:07)
[2017-06-17] MEDS: INSULIN LISPRO 100 UNITS/ML VIAL SC SCH ×2 (07:11→11:51)
[2017-06-17] MEDS: LEVOTHYROXINE SODIUM 125 MCG TABLET PO SCH (07:13)
[2017-06-17] MEDS: metFORMIN HCL 500 MG TABLET PO SCH (09:13)
[2017-06-17] MEDS: CARVEDILOL 12.5 MG TABLET PO SCH (09:13)
[2017-06-17] MEDS: cefTRIAXone SODIUM 1,000 MG in DEXTROSE 5 % IN WATER 50 ML IV SCH ×2 (10:34)
--- NOTE | 2017-06-17 10:34 | DS ---
(1) Multifocal pneumonia Problem: Acute (2) CHF (congestive heart failure) Problem: Acute Qualifiers: Congestive heart failure type: unspecified congestive heart failure type Congestive heart failure chronicity: acute Qualified Code(s): I50.9 - Heart failure, unspecified Description of Stay: ADMISSION DATE: 06/13/2017 DISCHARGE DATE: 06/17/[address] Martines: Patient is a 81-year-old WF with a history of HTN, HLD, T2DM, CAD [[place] with stent placement in 1992,vessel unknown], S/P pacemaker placement in 2014, hypothyroidism who came to the ER because of blood in sputum, chills for the last 3 days. She states she was seated next to a sick child during [employer] dinner. She also complains of a sore throat. She denies swelling in her lower extremities, SOB and was apparently taken off furosemide about 2 years ago by her railway head tender Dr. Brenner. Her CXR [06/13/17]: pulmonary venous congestion/interstitial edema, consider CHF versus volume overload; bibasilar opacities suggestive of either atelectasis / alveolar edema/multifocal pneumonia. Mild to moderate cardiomegaly present. Patient was given 60 mg of IV furosemide in the ER. Examined her on the floor and given her history she was also started on CTX 1 g IV daily and azithromycin 500 mg IV daily. Influenza titers were negative and CRP/ pro-calcitonin were pending at the time of dictation. HOSPITAL COURSE: The patient was admitted to the hospital for CHF with acute decompensation and possible pneumonia. Serial chest x-rays over the patients admission revealed bilateral multifocal pneumonia. The patient was treated with diuretics for her acutely decompensated CHF and with IV antibiotics for her multifocal pneumonia. The patient had good clinical improvement during her hospital admission was discharged home in stable condition. She was instructed to complete her course of oral antibiotics and to follow-up with Dr. Martines within 1 week. The patient will need a repeat chest x-ray in approximately 4 weeks to monitor for resolution of the multifocal pneumonia. FOLLOW-UP APPOINTMENTS: -Follow-up with PCP, Dr. Martines, within 1 week NEW OR CHANGED MEDICATIONS: -Azithromycin 500mg PO daily X 5 days -Cefdinir 300mg PO Q12H X 7 days -Robitussin-DM 10mL PO Q4H PRN cough DISCONTINUED MEDICATIONS: None RADIOLOGY REPORTS: PA and lateral chest x-ray on 06/13/2017: 1. Pulmonary vascular congestion/interstitial edema suggested. 2. Mild to moderate cardiomegaly. 3. Consider congestive heart failure versus volume overload. 4. Bibasilar opacities suggestive of either atelectasis versus potential trace amount of alveolar edema versus multifocal pneumonia. PA and lateral chest x-ray on 06/14/2017: 1. Persistent increased vascular markings and peripheral linear lung markings. Questionable infiltrate in the right upper lobe near the minor fissure. Consider worsening peripheral interstitial edema versus new developing infection. 2. Stable cardiomegaly. PA and lateral chest x-ray on 06/16/2017: Radiographically worsening multifocal opacities involving the right upper lobe, and bilateral lower lobes. Clearly clinically for worsening multifocal pneumonia versus pulmonary edema. Procedures Performed: none Discharge Disposition: Home self care Disposition: Home self-care Condition: Stable Discharge Activity: Activity as tolerated Discharge Diet: Consistent carbs Problem Oriented Discharge Instructions to Patient/Family: Community-Acquired Pneumonia, Adult, [id number] Additional Patient Instructions (free text): -Follow-up with PCP, Dr. Martines, within 1 week. [facility] will call you on Monday with follow up appointment. Chest XRAY in 4 weeks Prescriptions (Any new or edited meds): Azithromycin [Zithromax] 500 mg PO DAILY 5 Days #5 tab Cefdinir 300 mg PO Q12H #14 capsule guaiFENesin/DEXTROMETHORPHAN [Robitussin-Dm] 10 ml PO Q4H PRN #1 btl PRN Reason: Cough Complete Home Medications List: Complete Home Medication List: Amiodarone HCl [Cordarone] 100 mg PO DAILY 04/05/16 Aspirin 81 mg PO DAILY 04/05/16 Acetaminophen [Tylenol] 1,000 mg PO TID PRN 05/12/16 Blood-Glucose Meter [Blood Glucose Monitoring] 1 each MC DAILY 05/12/16 Carvedilol [Coreg] 12.5 mg PO BID 05/12/16 Cholecalciferol [Vitamin D] 2,000 unit PO DAILY 05/12/16 Levothyroxine Sodium [Synthroid] 125 mcg PO DAILY 05/12/16 Sennosides [Senokot] 2 tab PO DAILY PRN 05/12/16 metFORMIN HCL [Glucophage] 250 mg PO BIDWM 05/12/16 oxyCODONE HCL/ACETAMINOPHEN [Percocet 5 MG/325 MG] 1 tab PO BID PRN 05/12/16 Albuterol Sulfate [Proair Hfa] 1 puff IH Q4H PRN 06/13/17 Atorvastatin Calcium [Lipitor] 10 mg PO HS 06/13/17 Furosemide [Lasix] 20 mg PO DAILY PRN 06/13/17 Azithromycin [Zithromax] 500 mg PO DAILY 5 Days #5 tab 06/17/17 Cefdinir 300 mg PO Q12H #14 capsule 06/17/17 guaiFENesin/DEXTROMETHORPHAN [Robitussin-Dm] 10 ml PO Q4H PRN #1 btl 06/17/17 Amb Orders for Discharge: Chest PA & Lateral * Time Frame: 4 Weeks, Location: Determined By Patient
[2017-06-17] MEDS: AZITHROMYCIN 500 MG in DEXTROSE 5 % IN WATER 250 ML IV SCH ×2 (11:14)
[2017-06-17] MEDS: guaiFENesin/DEXTROMETHORPHAN 118 ML BTL PO PRN (11:18)
[2017-06-17] MEDS: ENOXAPARIN SODIUM 40 MG/0.4 ML SYRG SC SCH (11:18)
[2017-06-17] MEDS: CHOLECALCIFEROL 1,000 UNIT CAPSULE PO SCH (11:21)
[2017-06-17 11:33] VITALS: BP 148/76
== END 2017-06-17 13:30 | disposition home or self-care (01) | DRG 195 ==
LOC: ER 14:17 → MS 15:50 → OBSVTOIN 06-14 15:42
PROVIDERS: ADMIT Internal Medicine; ATTEND Internal Medicine
DX: Z79.84 Long term (current) use of oral hypoglycemic drugs; K21.9 Gastro-esophageal reflux disease without esophagitis; J18.9 Pneumonia, unspecified organism; I50.9 Heart failure, unspecified; Z95.5 Presence of coronary angioplasty implant and graft; I25.2 Old myocardial infarction; Z95.0 Presence of cardiac pacemaker; N18.3 Chronic kidney disease, stage 3 (moderate); Z79.82 Long term (current) use of aspirin; I12.9 Hypertensive chronic kidney disease with stage 1 through stage 4 chronic kidney disease, or unspecified chronic kidney disease; I25.10 Atherosclerotic heart disease of native coronary artery without angina pectoris; E03.9 Hypothyroidism, unspecified; E11.22 Type 2 diabetes mellitus with diabetic chronic kidney disease; E78.5 Hyperlipidemia, unspecified
CPT/HCPCS: 36415; 71046; 80053; 83880; 84145; 84484; 85025; 86140; 87070; 87077; 87184; 87400; 87449; 93005; 94640; 94760; 99285; G0378

== ENCOUNTER 2017-07-21 03:13 | Observation (INO) | payer MEDICARE, BC ==
[2017-07-21] MEDS ORDERED: ALBUTEROL SULFATE 2.5 MG/0.5 ML VIAL.NEB IH ONE ×2 (03:40)
[2017-07-21 03:41] LABS: Venous Blood Gas HCO3 23.8 mmol/L (22.0-29.0); Venous Blood Gas pH 7.48 (7.32-7.43)
--- NOTE | 2017-07-21 03:44 | ERNOTE ---
Chest Pain/Cardiac HPI Date of Service: 07/21/17 Chief Complaint: Dyspnea Time Seen by Provider: 07/21/17 03:19 Source: patient Exam Limitations: no limitations Immunizations: IMMUNIZATION HX Immunizations Up to Date Yes History of Influenza Vaccine Yes Hx Pneumococcal Vaccination Yes Allergies/Adverse Reactions: Allergies No Known Allergies Allergy (Verified 07/21/17 03:49) Home Medications: HOME MEDICATIONS Amiodarone HCl [Cordarone] 100 mg PO DAILY 04/05/16 [Last Taken 04/05/16] Aspirin 81 mg PO DAILY 04/05/16 [Last Taken 04/05/16] Blood-Glucose Meter [Blood Glucose Monitoring] 1 each MC DAILY 05/12/16 [Last Taken Unknown] Carvedilol [Coreg] 12.5 mg PO BID 05/12/16 [Last Taken Unknown] Cholecalciferol [Vitamin D] 2,000 unit PO DAILY 05/12/16 [Last Taken Unknown] Levothyroxine Sodium [Synthroid] 125 mcg PO DAILY 05/12/16 [Last Taken Unknown] metFORMIN HCL [Glucophage] 500 mg PO BIDWM 05/12/16 [Last Taken Unknown] Atorvastatin Calcium [Lipitor] 10 mg PO HS 06/13/17 [Last Taken Unknown] Furosemide [Lasix] 20 mg PO DAILY 06/13/17 [Last Taken Unknown] Narrative: Patient is a 81-year-old WF with a history of HTN, HLD, T2DM, CAD [[place] with stent placement in 1992,vessel unknown], S/P pacemaker placement in 2014, CHF, and hypothyroidism. Acute onset of shortness of breath at rest about 2200 hours. Associated symptoms were mild chest/abdominal discomfort that does not radiate. Denies any fevers, chills, N/V. She has not had similar symptoms previously. Hx of chronic back pain. Date (Duration): 07/14/17 Timing: getting worse Severity/Quality: moderate Location: substernal, abdomen Chest Pain Radiation: no radiation Activities at Onset: none Modifying Factors - Improves: Present: nothing Modifying Factors - Worsens: Present: other - none Nitro Today/Relief: no nitro taken today Associated Symptoms: Present: shortness of breath Prior Chest Pain/Cardiac Workup: Reports: prior chest pain Prior Treatment: Reports: treated by physician Review of Systems - Review of Systems Constitutional: Present: no symptoms reported EYE: Present: no symptoms reported ENT: Present: no symptoms reported Respiratory: Present: See HPI Cardiology: Present: no symptoms reported Gastrointestinal/Abdominal: Present: no symptoms reported Genitourinary: Present: no symptoms reported Musculoskeletal: Present: no symptoms reported Skin: Present: no symptoms reported Neurological: Present: no symptoms reported Endocrine: Present: no symptoms reported Hematologic/Lymphatic: Present: no symptoms reported Psych: Present: no symptoms reported - Patient's Past Medical History Patient History - Medical: Diabetes Type 2, Renal Failure Patient History - Cardiac/Respiratory: CHF, Hyperlipidemia, Myocardial Infarction Patient History - Cancer: No Hx of Cancer Patient History - Surgical Procedures: Cholecystectomy, Pacemaker Patient History - Other: None - Family History Father Family History - Medical: Family History - Cardiac/Respiratory: COPD Family History - Cancer: History Unknown Mother Family History - Medical: Family History - Cardiac/Respiratory: History Unknown, COPD Family History - Cancer: No pertinent family hx - Social History Living Situations: home Abuse History: No History of abuse Psych History: Hx of Anxiety, Hx of Depression Smoking Status: Never smoker Alcohol Use: none Drug Use: none - Immunizations Immunizations Up to Date: Yes Hx Pneumococcal Vaccination: Yes History of Influenza Vaccine: Yes Physical Exam - Physical Exam General Appearance: Present: mild distress Head Exam: Present: normal inspection Eye Exam: Normal inspection: bilateral, PERRL: bilateral, EOMI: bilateral Ears, Nose, Throat: Present: normal ENT inspection Neck: Present: normal inspection Respiratory: Present: accessory muscle use Cardiovascular/Chest: Present: regular rate, rhythm Gastrointestinal/Abdominal: Present: tenderness - mild on palpation. No rebound tenderness. Back Exam: Present: normal inspection Extremity Exam: Present: normal inspection Neurological Exam: Present: alert, oriented, normal mood/affect Skin Exam: Present: normal color ED Progress - Results and Orders Patient's Lab Results:: I have reviewed the patient's lab results. - Vital Signs Patient's Vital Signs:: I have reviewed the patient's vital signs. - Vital Signs: Vital Signs 07/21/17 03:18 Temperature 36.2 C L Pulse Rate 87 Respiratory 28 H Rate Blood Pressure 168/95 O2 Sat by Pulse 92 Oximetry - EKG EKG: NSR EKG read: Interp. by me EKG Comments: rate 92, leftward axis - X-Ray X-Ray #1 X-Ray: chest Interpretation: Interp. by me X-ray Comments: CHF - CT/Ultrasound CT/Ultrasound Narrative: CT of the chest/abdomen/pelvis- no aneurysm or dissection. CAD. - Progress/Reassessment Chief Complaint: Dyspnea Progress:: Improved Progress Note-Subjective: 07/21/17 04:50 Given Lasix 40 IV. Now breathing is easier. 07/21/17 05:28 Feeling better and has put out 1200 cc of urine. Discussed with Dr. Murrieta who will admit the patient. Departure Clinical Impression: Congestive heart failure - Departure Disposition: [facility] Condition: Fair
[2017-07-21 03:46] LABS: Hematocrit 34.8 % (37.0-47.0); Hemoglobin 11.3 gm/dL (12.5-16.0); Mean Cell Volume 93.8 fl (78-100); Mean Corpuscular Hemoglobin 30.5 pg (27-31); Mean Corpuscular Hgb Conc 32.5 g/dl (32-36); Mean Platelet Volume 10.9 fl (6.0-9.5); Neutrophil # 11.9 K/mm3 (1.3-6.0); Neutrophil % 84.9 % (42-75.0); Platelet Count 207 K/mm3 (150-450); Red Blood Count 3.71 M/mm3 (4.2-5.4); Red Cell Distribution Width 14.5 % (11.5-14.0)
[2017-07-21 04:07] LABS: Partial Thrombolplastin Time 21.7 Seconds (24-32)
[2017-07-21] MEDS ORDERED: FUROSEMIDE 10 MG/ML VIAL ONE (04:08)
[2017-07-21 04:11] LABS: Albumin * 3.3 gm/dl (3.4-5.0); Anion Gap 12.3 mmol/L (6.8-13.8); BUN/Creatinine Ratio 24.1 (9.0-21.6); Bilirubin, Total 0.6 mg/dL (0.0-1.1); Ca. Corrected For Albumin 9.4 mg/dL (8.4-10.2); Calcium * 9.2 mg/dL (7.9-10.9); Carbon Dioxide 26.8 mmol/L (24-32.6); Potassium 4.1 mmol/L (3.4-4.6); Total Protein 7.1 gm/dL (6.2-8.2); Troponin I 0.017 ng/ml (0.00-0.10)
[2017-07-21] MEDS ORDERED: FUROSEMIDE 10 MG/ML VIAL IV SCH (04:15)
[2017-07-21] MEDS ORDERED: LABETALOL HCL 5 MG/ML VIAL IV ONE ×2 (04:54→04:56)
[2017-07-21 04:59] LABS: Urine Bilirubin Negative (NEGATIVE); Urine Blood Negative /ul (NEGATIVE); Urine Ketone Negative (NEGATIVE); Urine Nitrite Negative (NEGATIVE); Urine Protein Negative (NEGATIVE); Urine Specific Gravity 1.015 SP.GR. (1.005-1.010); Urine Urobilinogen Normal (NORMAL); Urine pH 6.5 pH (5.0-7.0)
[2017-07-21 05:08] LABS: Urine Appearance Clear; Urine Bacteria None Seen; Urine Color Pale Yellow; Urine RBC 0-5 /hpf (0-5); Urine WBC 0-5 /hpf (0-5)
[2017-07-21] MEDS: FUROSEMIDE 10 MG/ML VIAL IV SCH (09:09)
--- NOTE | 2017-07-21 09:23 | HP ---
Chief Complaint - Chief Complaint Date of Service: 07/21/17 Time of Service: 09:22 Chief Complaint: sob and difficulty in breathing. History of Present Illness: Ca acosta is a 81-year-old WF with a history of HTN, HLD, PAF CAD who came to the ER because of sudden onset of shortness of breath and difficulty in breathing which woke her up earlier this morning. She states she was staying with her daughter and had food with lunch meats etc. and not watching her diet. She stated she had mild chest discomfort/abdominal discomfort. She had bilateral crackles on exam and pedal edema. She was given furosemide 40 mg IV in ER and put out 1200 mL of urine with improvement in symptoms. Her chest x- ray was read as negative. BNP 4509 g/ml. CTA chest negative for aneurysm/ dissection. Admitted into observation for further care and treatment. - Patient's Past Medical History Additional info: PAST MEDICAL HISTORY: Hypertension, hyperlipidemia, hypothyroidism. Coronary artery disease with DC in 1992 with stent placement. T2 DM - 1997. CKD stage III. Osteopenia[bone density 09/2015] L1-L4 -1.7; femur +0.2 Paroxysmal A. . S/P DDD placement for third-degree AV block. GERD. Osteoarthritis with LT hip pain and rotator cuff syndrome left shoulder. Patient History - Cancer: No Hx of Cancer Additional Info: PAST SURGICAL HISTORY: Vein stripping-1969's Bilateral carpal tunnel surgery-. Stent placement due to DC - 1992. MUSHTAQ/BSO - 1992. Cholecystectomy. EGD/colonoscopy: EGD gastritis, colonoscopy- WNL 2010. DDD pacemaker placement due to third degree AV block-2014 Patient History - Other: None - Family History Father Family History - Medical: - 65- COPD Family History - Cancer: No pertinent family hx Mother Family History - Medical: - 82-DC, CAD - Social History Living Situations: alone Abuse History: No History of abuse Psych History: Hx of Anxiety, Hx of Depression Smoking Status: Never smoker Have you smoked in the past 12 months: No Alcohol Use: none Drug Use: none - Immunizations Immunizations Up to Date: Yes Hx Pneumococcal Vaccination: Yes History of Influenza Vaccine: Yes Review Of Systems (GEN) - Review of Systems Respiratory: Present: Shortness of Breath Cardiac: Present: Edema Allergies/Adverse Reactions: Allergies Allergy/AdvReac Type Severity Reaction Status Date / Time No Known Allergies Allergy Verified 07/21/17 03:49 Home Medications: HOME MEDICATIONS Amiodarone HCl [Cordarone] 100 mg PO DAILY 04/05/16 [Last Taken 04/05/16] Aspirin 81 mg PO DAILY 04/05/16 [Last Taken 04/05/16] Blood-Glucose Meter [Blood Glucose Monitoring] 1 each MC DAILY 05/12/16 [Last Taken Unknown] Carvedilol [Coreg] 12.5 mg PO BID 05/12/16 [Last Taken Unknown] Cholecalciferol [Vitamin D] 2,000 unit PO DAILY 05/12/16 [Last Taken Unknown] Levothyroxine Sodium [Synthroid] 125 mcg PO DAILY 05/12/16 [Last Taken Unknown] metFORMIN HCL [Glucophage] 500 mg PO BIDWM 05/12/16 [Last Taken Unknown] Atorvastatin Calcium [Lipitor] 10 mg PO HS 06/13/17 [Last Taken Unknown] Furosemide [Lasix] 20 mg PO DAILY 06/13/17 [Last Taken Unknown] Exam - Exam Vital Signs: Vital Signs - Last Taken Temp 36.9 C 07/21/17 08:58 Pulse 74 07/21/17 09:09 Resp 18 07/21/17 08:58 BP 142/71 07/21/17 09:09 Pulse Ox 98 07/21/17 08:58 Constitutional: Present: Elderly - Alert and oriented 3, NAD. ENT Exam: Present: hearing grossly normal, moist mucous membranes Eye Exam: bilateral eye: PERRL, EOMI Neck: Present: normal inspection, trachea midline Respiratory: Present: no accessory muscle use - Bilateral crackles in both lung [place], no rhonchi Peripheral Pulses: carotid (R): 2+, carotid (L): 2+ Abdomen: Present: Normal bowel sounds, soft, nontender, obese /Rectal: Present: Exam deferred Extremity: Present: normal inspection - 1+ edema Skin Exam: Present: warm/dry, pallor Appearance: Present: appropriate appearance, appropriate insight, neat - Good eye contact, normal speech, normal thought pattern. Diagnostic Studies: Laboratory Tests 07/21/17 03:47 WBC 14.0 H Hgb 11.3 L Hct 34.8 L Plt Count 207 07/21/17 03:47 Plasma Sodium 142 Potassium 4.1 Chloride 105 Carbon Dioxide 26.8 Anion Gap 12.3 BUN 21 D Creatinine 0.87 Est GFR (Non-Af Amer) 67 Random Glucose 206 H Calcium Adj for Albumin 9.4 Total Bilirubin 0.6 AST 66 H ALT 68 H Alkaline Phosphatase 72 Total Protein 7.1 Albumin 3.3 L 07/21/17 03:47 Troponin I 0.017 B-Natriuretic Peptide 4509 H EKG : 07/21/17: NSR 92 /min, IVCD, non specific ST and T wave changes. CXR: 07/21/17: AP VIEW: Stable pacemaker, diffuse hyperinflation of the lungs bilaterally with flattening of the hemidiaphragm. Lungs are clear bilaterally. There is no consolidation, pleural effusion or pneumothorax. Cardiac silhouette is enlarged but stable. The pulmonary vasculature is normal. The osseous structures demonstrate degenerative changes of the spine and shoulders. IMPRESSION: NO ACUTE CARDIOPULMONARY ABNORMALITY IDENTIFIED. CTA 07/21/17: No evidence of dissection/PE. Assessment/Plan - Narrative Narrative: 1. CONGESTIVE HEART FAILURE: Patient was given furosemide 80 mg IV [total]. Obtain CMP in the afternoon. Monitor electrolytes. Obtain echocardiogram to evaluate LV function. Adjust medications accordingly. Patient sees Dr. Bush at [facility]. Have patient see him after d/daniel. On carvedilol 12.5 mg daily and furosemide 20 mg daily, not on an ANNABELLE inhibitor. Obtain records from Dr. Bush regarding prior echo/stent placement. 2. S/P DDD pacemaker: Third degree AV block in 2014 3. PAF: On amiodarone 100 mg daily. Chads score is greater than 2; not on anticoagulation. 4. H/O ANEMIA: Obtain serum iron, serum ferritin TIBC and B12 levels. 5. HYPOTHYROIDISM: Patient on levothyroxine 125 mg a day. Obtain TSH levels today. 6. DVT prophylaxis patient is ambulatory and in observation. CODE STATUS: Full code. 7. OTHER CHRONIC MEDICAL PROBLEMS: Osteoarthritis including Hip, rotator cuff, T2 DM, hyperlipidemia, bronchospastic airway disease, CAD with history of DC and stent placement in 1992 reviewed and stable. - Assessment/Plan (1) CHF (congestive heart failure) Problem: Acute (2) Anemia Problem: Chronic Qualifiers: Anemia type: unspecified type Qualified Code(s): D64.9 - Anemia, unspecified (3) CAD (coronary artery disease), [place] coronary artery Problem: Chronic Qualifiers: [place] vs. transplanted heart: [place] heart Associated angina: without angina Qualified Code(s): I25.10 - Atherosclerotic heart disease of [place] coronary artery without angina pectoris (4) Diabetes mellitus type 2, uncomplicated Problem: Chronic Qualifiers: Diabetes mellitus terminal operations manager insulin use: without terminal operations manager use Qualified Code(s): E11.9 - Type 2 diabetes mellitus without complications (5) Hypertension Problem: Chronic
[2017-07-21 14:21] LABS: Iron 25 mcg/dL (35-120); Transferrin Sat. (% Sat.) 10 % (15-55)
[2017-07-21 14:23] LABS: Albumin * 3.3 gm/dl (3.4-5.0); Anion Gap 8.5 mmol/L (6.8-13.8); BUN/Creatinine Ratio 19.3 (9.0-21.6); Bilirubin, Total 0.7 mg/dL (0.0-1.1); Ca. Corrected For Albumin 8.7 mg/dL (8.4-10.2); Calcium * 8.5 mg/dL (7.9-10.9); Carbon Dioxide 32.8 mmol/L (24-32.6); Potassium 3.3 mmol/L (3.4-4.6); TSH * 0.81 uIU/mL (0.358-3.74); Total Protein 6.8 gm/dL (6.2-8.2)
[2017-07-21] MEDS ORDERED: FUROSEMIDE 10 MG/ML VIAL IV ONE (15:00)
[2017-07-21] MEDS ORDERED: SPIRONOLACTONE 25 MG TABLET PO ONE (15:00)
[2017-07-21] MEDS ORDERED: POTASSIUM CHLORIDE 20 MEQ TABLET.SA PO ONE (16:00)
[2017-07-21] MEDS ORDERED: metFORMIN HCL 500 MG TABLET PO SCH (17:00)
[2017-07-21] MEDS ORDERED: CHOLECALCIFEROL 1,000 UNIT CAPSULE PO SCH (18:00)
[2017-07-21] MEDS ORDERED: ROSUVASTATIN CALCIUM 10 MG TABLET PO SCH (21:00)
[2017-07-21] MEDS: CARVEDILOL 12.5 MG TABLET PO SCH (22:07)
[2017-07-22 06:06] LABS: BUN/Creatinine Ratio 20.2 (9.0-21.6); Bilirubin, Total 0.6 mg/dL (0.0-1.1); Calcium * 8.5 mg/dL (7.9-10.9); Carbon Dioxide 31.6 mmol/L (24-32.6); Potassium 3.6 mmol/L (3.4-4.6); Total Protein 6.4 gm/dL (6.2-8.2)
[2017-07-22] MEDS ORDERED: LEVOTHYROXINE SODIUM 125 MCG TABLET PO SCH (07:00)
[2017-07-22] MEDS: CARVEDILOL 12.5 MG TABLET PO SCH (08:26)
[2017-07-22] MEDS: FUROSEMIDE 10 MG/ML VIAL IV SCH (08:29)
[2017-07-22] MEDS ORDERED: AMIODARONE HCL 200 MG TABLET PO SCH (09:00)
[2017-07-22 10:35] VITALS: BP 131/62
[2017-07-22] MEDS ORDERED: SPIRONOLACTONE 25 MG TABLET PO ONE (11:30)
--- NOTE | 2017-07-22 11:31 | DS ---
(1) CHF (congestive heart failure) Problem: Acute (2) Anemia Problem: Chronic Qualifiers: Anemia type: iron deficiency (3) CAD (coronary artery disease), [place] coronary artery Problem: Chronic Qualifiers: [place] vs. transplanted heart: [place] heart Associated angina: without angina Qualified Code(s): I25.10 - Atherosclerotic heart disease of [place] coronary artery without angina pectoris (4) Diabetes mellitus type 2, uncomplicated Problem: Chronic Qualifiers: Diabetes mellitus rn long term care insulin use: without correction use Qualified Code(s): E11.9 - Type 2 diabetes mellitus without complications (5) Hypertension Problem: Chronic Qualifiers: Hypertension type: essential hypertension Qualified Code(s): I10 - Essential (primary) hypertension Description of Stay: DATE OF ADMISSION: 07/21/2017. DATE OF DISCHARGE: 07/22/2017. DIAGNOSTICS: CTA CHEST/ABDOMEN: 07/31/2017. 2-D ECHOCARDIOGRAM: 07/31/2017. 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 Chest x-ray negative. BNP 4909 pg/ml troponin less than 0.017ng/ml. EKG unremarkable. CTA CHEST/ABDOMEN: 1. Small bilateral pleural effusions and associated compressive atelectasis. No acute intrathoracic abnormality identified. No evidence for thoracic aortic dissection and aneurysm. No pulmonary embolism. 2. No acute intra-abdominal process. No evidence for abdominal aortic aneurysm /dissection. 3. Chronic findings and details: Diffuse atherosclerosis of the thoracic aorta with normal caliber; calcified mediastinal and hilar lymph nodes present; cardiomegaly. Coronary artery calcifications. Cardiac pacemaker. DJD of spine and shoulders, extensive DJD of the visualized spine. Gallbladder is surgically absent. 2-D ECHOCARDIOGRAM: Borderline LVH with EF 40-45%. Moderate septal wall hypokinesis. Biatrial enlargement -LT greater than RT. Moderate MR, mild AI, mild TR. Pulmonary HTN present. RVSP 60 mmHg. DTI E/E' >15% c/w wedge pr > 20 mm Hg. Patient diuresed well with furosemide IV. Electrolytes were trended. She was discharged home in a stable condition. [Greater than 30 minutes was spent 1. Discussing plan of care and treatment options with patient and family. 2. Reconciliation of medications, preparation and dictation of discharge summary]. Procedures Performed: none Results and Findings: Laboratory Tests 07/21/17 03:47 WBC 14.0 H Hgb 11.3 L Hct 34.8 L Plt Count 207 07/21/17 07/22/17 03:47 05:10 Plasma Sodium 142 141 Potassium 4.1 3.6 Chloride 105 104 Carbon Dioxide 26.8 31.6 BUN 21 D 17 Creatinine 0.87 0.84 Est GFR (Non-Af Amer) 67 69 Random Glucose 206 H 187 H Calcium Adj for Albumin 9.4 9.0 Total Bilirubin 0.6 0.6 AST 66 H 27 ALT 68 H 56 Alkaline Phosphatase 72 66 Total Protein 7.1 6.4 Albumin 3.3 L 3.0 L TSH 0.810 07/21/17 03:47 Troponin I 0.017 B-Natriuretic Peptide 4509 H 07/21/17 13:52 Iron 25 L TIBC 250 L Transferrin % Sat 10 L Vitamin B12 339 Discharge Disposition: Home self care Disposition: Home self-care Condition: Stable Discharge Diet: Consistent carbs, Low salt, Low fat/chol, High Fiber Referrals: Anmol Martines MD [Primary Care Provider] - Problem Oriented Discharge Instructions to Patient/Family: Heart Failure, Easy- to-Read, CHF Patient Instructions Additional Patient Instructions (free text): NEW MEDICATIONS/TIMINGS: 1. Lisinopril 2.5 mg at bedtime. 2. Spironolactone 25 mg at 11 AM. 3. Furosemide/Lasix 25 mg at 11 AM. 4. Atorvastatin 20 mg daily.[Can double up on the 10 mg pills till gone]. 5. vitamins[in the form of gummy bears] 3 times a week. 6. Omeprazole 20 mg 30 min before breakfast. MEDICATIONS DISCONTINUED: 1. Atorvastatin 10 mg daily. Weigh yourself every day at the same time. Call office if there is a gain of 3 pounds in 1 day or 5 pounds in 2 days. Avoid foods high in salt and keep you sodium intake to less than 2.5 g a day You will be getting iron IV through the next 1. Appointment with Dr. Uribe 07/26/17 with CMP done 2 hours before visit. *Bring all medication bottles with you to this appointment.* Please make TCM appointment unless fdc discharge. Thank you! Martha @ [phone]. Prescriptions (Any new or edited meds): Atorvastatin Calcium 20 mg PO DAILY #30 tablet Ferumoxytol [Feraheme] 510 mg IV ONCE #1 vial Lisinopril [Zestril] 2.5 mg PO DAILY@2100 #30 tablet metFORMIN HCL [Metformin HCl] 250 mg PO BIDWM #0.1 tablet Omeprazole 20 mg PO DAILY #30 tablet. Spironolactone [Aldactone] 25 mg PO DAILY@1100 #30 tablet Complete Home Medications List: Complete Home Medication List: Amiodarone HCl [Cordarone] 100 mg PO DAILY 04/05/16 Aspirin 81 mg PO DAILY 04/05/16 Blood-Glucose Meter [Blood Glucose Monitoring] 1 each MC DAILY 05/12/16 Carvedilol [Coreg] 12.5 mg PO BID 05/12/16 Cholecalciferol [Vitamin D] 2,000 unit PO DAILY 05/12/16 Levothyroxine Sodium [Synthroid] 125 mcg PO DAILY 05/12/16 Furosemide [Lasix] 20 mg PO DAILY 06/13/17 Atorvastatin Calcium 20 mg PO DAILY #30 tablet 07/22/17 Ferumoxytol [Feraheme] 510 mg IV ONCE #1 vial 07/22/17 Lisinopril [Zestril] 2.5 mg PO DAILY@2100 #30 tablet 07/22/17 Omeprazole 20 mg PO DAILY #30 tablet. 07/22/17 Spironolactone [Aldactone] 25 mg PO DAILY@1100 #30 tablet 07/22/17 metFORMIN HCL [Metformin HCl] 250 mg PO BIDWM #0.1 tablet 07/22/17 Amb Orders for Discharge: Comprehensive Metabolic Panel Time Frame: 07/26/17, Location: Determined By Patient
--- NOTE | 2017-07-25 15:04 | ECHO ---
This report is available in the EMR
== END 2017-07-22 12:56 | disposition home or self-care (01) ==
LOC: ER 03:13 → MS 05:32
PROVIDERS: ADMIT Internal Medicine; ATTEND Internal Medicine
DX: I50.9 Heart failure, unspecified (principal); D50.9 Iron deficiency anemia, unspecified; I25.10 Atherosclerotic heart disease of native coronary artery without angina pectoris; E11.9 Type 2 diabetes mellitus without complications; I10 Essential (primary) hypertension; Z79.84 Long term (current) use of oral hypoglycemic drugs; J90 Pleural effusion, not elsewhere classified; E03.9 Hypothyroidism, unspecified; E78.5 Hyperlipidemia, unspecified; Z68.27 Body mass index [BMI] 27.0-27.9, adult
CPT/HCPCS: 36415; 36416; 71045; 74175; 80053; 81001; 82607; 82803; 83540; 83550; 83880; 84443; 84484; 85025; 85610; 85730; 93005; 93306; 94640; 96374; 96375; 99285; G0378